=== PATIENT | female | born 1960 | race Caucasian/White ===

== ENCOUNTER 2020-08-07 21:50 | Inpatient (IN) | payer OTHER ==
--- NOTE | 2020-08-07 22:50 | EDM.PDOC ---
ED HPI GENERAL MEDICAL PROBLEM - General Chief Complaint: Gastrointestinal Problem Stated Complaint: ABD PAIN Time Seen by Provider: 08/07/20 22:31 Source of Information: Reports: Patient, Family, RN Notes Reviewed History Limitations: Reports: No Limitations - History of Present Illness INITIAL COMMENTS - FREE TEXT/NARRATIVE: 60-year-old female presents emergency department a complaint of difficulty swallowing, she is gastric bypass about 10 years has had difficulty with small bowel obstruction as well as stricture she states this feels very much like a stricture. She is pain-free as long she does not eat however if she eats something feels like it gets stuck and then she has some emesis. - Related Data Allergies Allergy/AdvReac Type Severity Reaction Status Date / Time iron Allergy Cannot Verified 08/07/20 22:16 Remember iron sucrose complex Allergy Cannot Verified 08/07/20 22:16 [From Venofer] Remember oxcarbazepine Allergy Cannot Verified 08/07/20 22:16 [From Trileptal] Remember Home Meds: Home Meds Calcium Carb/Vitamin D3/Vit K1 [Calcium + Vit D & K Chew] 2 tab PO DAILY 12/08/13 [History] Ergocalciferol (Vitamin D2) [Drisdol] 50,000 unit PO ASDIRECTED 12/08/13 [History] Multivitamin with Minerals [Antioxidant Vitamin] 1 tab PO DAILY 12/08/13 [History] Pantoprazole Sodium [Protonix] 20 mg PO DAILY 12/08/13 [History] Cholecalciferol (Vitamin D3) [Vitamin D3] 5,000 unit PO DAILY 03/09/15 [History] Cyanocobalamin (Vitamin B-12) [Cyanocobalamin Injection] 1,000 mcg IM DAILY 03/09/15 [History] Magnesium Hydroxide [Milk of Magnesia] 30 ml PO DAILY PRN #2 ml 03/15/15 [Rx] Aspirin 1 tab PO DAILY 08/07/20 [History] ClonazePAM [KlonoPIN] 1 tab PO BEDTIME 08/07/20 [History] DULoxetine [Cymbalta] 1 tab PO BEDTIME 08/07/20 [History] Iron,Carbonyl [Iron Chews] 1 tab PO DAILY 08/07/20 [History] Nortriptyline 1 tab PO DAILY 08/07/20 [History] Ondansetron [Zofran ODT] 1 tab PO TID PRN 08/07/20 [History] Rizatriptan [Maxalt FERMENTER WINE] 1 tab PO DAILY PRN 08/07/20 [History] Sennosides [Senna] 2 tab PO BEDTIME 08/07/20 [History] Past Medical History Gastrointestinal History: Reports: GERD Psychiatric History: Reports: Depression - Past Surgical History GI Surgical History: Reports: Bariatric Procedure, EGD Social & Family History - Tobacco Use Smoking Status *Q: Never Smoker ED ROS GENERAL - Review of Systems Review Of Systems: See Below Constitutional: Reports: No Symptoms Respiratory: Reports: No Symptoms Cardiovascular: Reports: No Symptoms GI/Abdominal: Reports: Abdominal Pain, Difficulty Swallowing, Nausea, Vomiting ED EXAM, GI/ABD - Physical Exam Exam: See Below Exam Limited By: No Limitations General Appearance: Alert, WD/WN, No Apparent Distress Respiratory/Chest: No Respiratory Distress, Lungs Clear, Normal Breath Sounds, No Accessory Muscle Use, Chest Non-Tender Cardiovascular: Regular Rate, Rhythm, No Murmur GI/Abdominal Exam: Soft, Non-Tender Course - Vital Signs Last Recorded V/S: Last Vital Signs Temp 98.5 F 08/07/20 22:37 Pulse 78 08/07/20 22:37 Resp 16 08/07/20 22:37 BP 145/78 H 08/07/20 22:37 Pulse Ox 99 08/07/20 22:37 - Orders/Labs/Meds Labs: Laboratory Tests 08/07/20 08/07/20 08/07/20 Range/Units 22:58 22:58 22:58 WBC 8.2 (4.5-11.0) K/uL RBC 4.27 (3.30-5.50) M/uL Hgb 12.0 (12.0-15.0) g/dL Hct 37.6 (36.0-48.0) % MCV 88 (80-98) fL MCH 28 (27-31) pg MCHC 32 (32-36) % Plt Count 419 H (150-400) K/uL Neut % (Auto) 62 (36-66) % Lymph % (Auto) 29 (24-44) % Norton % (Auto) 8 H (2-6) % Eos % (Auto) 2 (2-4) % Baso % (Auto) 0 (0-1) % Sodium 142 (140-148) mmol/L Potassium 3.6 (3.6-5.2) mmol/L Chloride 106 (100-108) mmol/L Carbon Dioxide 24 (21-32) mmol/L Anion Gap 12.3 (5.0-14.0) mmol/L BUN 16 D (7-18) mg/dL Creatinine 0.9 (0.6-1.0) mg/dL Est Cr Clr Drug Dosing 58.12 mL/min Estimated GFR (MDRD) > 60 (>60) Glucose 110 H (74-106) mg/dL Lactic Acid 0.7 (0.4-2.0) mmol/L Calcium 8.9 (8.5-10.1) mg/dL Total Bilirubin 0.3 (0.2-1.0) mg/dL AST 21 (15-37) U/L ALT 27 (12-78) U/L Alkaline Phosphatase 91 (46-116) U/L Total Protein 7.3 (6.4-8.2) g/dL Albumin 3.8 (3.4-5.0) g/dL Globulin 3.5 (2.3-3.5) g/dL Albumin/Globulin Ratio 1.1 L (1.2-2.2) Urine Color (YELLOW) Urine Appearance (CLEAR) Urine pH (5.0-8.0) Ur Specific Brutus (1.008-1.030) Urine Protein (NEGATIVE) mg/dL Urine Glucose (UA) (NEGATIVE) mg/dL Urine Ketones (NEGATIVE) mg/dL Urine Occult Blood (NEGATIVE) Urine Nitrite (NEGATIVE) Urine Bilirubin (NEGATIVE) Urine Urobilinogen (0.2-1.0) EU/dL Ur Leukocyte Esterase (NEGATIVE) Urine RBC (0-5) Urine WBC (0-5) Ur Epithelial Cells Amorphous Sediment Urine Bacteria Urine Mucus 08/07/20 Range/Units 23:26 WBC (4.5-11.0) K/uL RBC (3.30-5.50) M/uL Hgb (12.0-15.0) g/dL Hct (36.0-48.0) % MCV (80-98) fL MCH (27-31) pg MCHC (32-36) % Plt Count (150-400) K/uL Neut % (Auto) (36-66) % Lymph % (Auto) (24-44) % Norton % (Auto) (2-6) % Eos % (Auto) (2-4) % Baso % (Auto) (0-1) % Sodium (140-148) mmol/L Potassium (3.6-5.2) mmol/L Chloride (100-108) mmol/L Carbon Dioxide (21-32) mmol/L Anion Gap (5.0-14.0) mmol/L BUN (7-18) mg/dL Creatinine (0.6-1.0) mg/dL Est Cr Clr Drug Dosing mL/min Estimated GFR (MDRD) (>60) Glucose (74-106) mg/dL Lactic Acid (0.4-2.0) mmol/L Calcium (8.5-10.1) mg/dL Total Bilirubin (0.2-1.0) mg/dL AST (15-37) U/L ALT (12-78) U/L Alkaline Phosphatase (46-116) U/L Total Protein (6.4-8.2) g/dL Albumin (3.4-5.0) g/dL Globulin (2.3-3.5) g/dL Albumin/Globulin Ratio (1.2-2.2) Urine Color Yellow (YELLOW) Urine Appearance Clear (CLEAR) Urine pH 6.0 (5.0-8.0) Ur Specific Brutus 1.020 (1.008-1.030) Urine Protein Negative (NEGATIVE) mg/dL Urine Glucose (UA) Negative (NEGATIVE) mg/dL Urine Ketones Negative (NEGATIVE) mg/dL Urine Occult Blood Negative (NEGATIVE) Urine Nitrite Negative (NEGATIVE) Urine Bilirubin Negative (NEGATIVE) Urine Urobilinogen 0.2 (0.2-1.0) EU/dL Ur Leukocyte Esterase Negative (NEGATIVE) Urine RBC Not seen (0-5) Urine WBC 0-5 (0-5) Ur Epithelial Cells Not seen Amorphous Sediment Rare Urine Bacteria Not seen Urine Mucus Not seen Departure - Departure Time of Disposition: 23:37 Disposition: Admitted As Inpatient 67 Condition: Fair Clinical Impression: Dysphagia Qualifiers: Dysphagia type: unspecified Qualified Code(s): R13.10 - Dysphagia, unspecified - Discharge Information Referrals: PCP,None [Primary Care Provider] - Forms: ED Department Discharge Sepsis Event Note (ED) - Evaluation Sepsis Screening Result: No Definite Risk - Focused Exam Vital Signs: Vital Signs Temp Pulse Resp BP Pulse Ox 08/07/20 22:37 98.5 F 78 16 145/78 H 99 08/07/20 22:07 98.5 F 78 16 145/78 H 99 - Assessment/Plan Plan: Assessment Acuity = acute Site and laterality = dysphagia Etiology = unknown Manifestations = nausea and vomiting Location of injury = Home Lab values = CBC, CMP, urinalysis, lactic acid all within normal limits Plan Call discussed case Dr. Oliver at [id number] he kindly agreed to evaluate the patient in the hospital she will be admitted for observation plan for EGD and dilatation in the morning This note was dictated using [employer] voice recognition software please call with any questions on syntax or grammar.
[2020-08-07] MEDS ORDERED: Sodium Chloride 0.9% 10 ML Syringe FLUSH PRN (23:38)
[2020-08-07] MEDS ORDERED: Ondansetron 4 MG/2 ML SDV IVPUSH PRN (23:41)
[2020-08-07] MEDS ORDERED: fentaNYL 100 MCG/2 ML SDV IVPUSH PRN (23:41)
[2020-08-07] MEDS ORDERED: Lactated Ringers 1,000 ML IV SCH (23:45)
[2020-08-08] MEDS ORDERED: MVI, Adult with Vitamin K 10 ML, Chromium/Copper/Mang/Selen/Zn 1 ML, Thiamine 100 MG in... IV ONE ×4 (07:30)
[2020-08-08] MEDS ORDERED: fentaNYL 100 MCG/2 ML SDV ONE (07:39)
[2020-08-08] MEDS ORDERED: Midazolam 1 MG/ML 2 ML SDV ONE (07:39)
[2020-08-08] MEDS ORDERED: Propofol 200 MG/20 ML SDV ONE (07:39)
[2020-08-08] MEDS ORDERED: Hyoscyamine 0.125 MG Tab.SL SL PRN (08:58)
[2020-08-08] MEDS: Rizatriptan 10 MG Tab.DIS PO PRN ×2 (09:38→14:54)
[2020-08-08] MEDS: Dextrose 5%-Lactated Ringers 1,000 ML IV SCH ×2 (09:38→19:08)
[2020-08-08] MEDS ORDERED: Iopamidol 612 MG/ML 100 ML Bottle IV PRN (11:35)
[2020-08-08] MEDS ORDERED: Iopamidol 612 MG/ML 50 ML SDV PO ONE (11:35)
[2020-08-08] MEDS ORDERED: Sodium Chloride 0.9% 10 ML SDV FLUSH ONE (11:35)
--- NOTE | 2020-08-08 12:52 | CRLCT ---
HISTORY: Abdominal pain. TECHNIQUE: CT abdomen and pelvis with IV and oral contrast. COMPARISON: CT abdomen pelvis 03/17/2019. FINDINGS: Abdomen: Cholecystectomy. Mild intrahepatic bile duct dilation and prominent common duct compatible with postcholecystectomy change. No pancreatic mass pancreatic duct dilation. No spleen lesions. No adrenal nodules. Kidneys enhance symmetrically. 3.6 cm left renal cyst. No hydronephrosis. Georges-en-Y gastric bypass. Alimentary limb is mildly dilated. Contrast passes the jejunojejunostomy into the common channel. No extraluminal contrast. No discrete transition. Stool throughout the colon. Colon is nondilated. Ventral hernia repair. No recurrent ventral hernia. Small amount of free fluid in the pelvis. No fluid collection. No pneumoperitoneum. No lymphadenopathy. Moderate atherosclerosis. Abdominal aorta is normal caliber. Appendix is normal. Pelvis: Uterus absent. No lymphadenopathy. Musculoskeletal: Degenerative changes of the spine. Lower chest: Mild atelectasis in the lung bases. IMPRESSION: 1. Georges-en-Y gastric bypass. Mildly dilated alimentary limb without discrete obstruction. Contrast passes the jejunojejunostomy into the common channel. No extraluminal contrast to suggest leak. 2. Small amount of free fluid in the pelvis. No fluid collection. 3. Cholecystectomy. Please note that all CT scans at this facility use dose modulation, iterative reconstruction, and/or weight-based dosing when appropriate to reduce radiation dose to as low as reasonably achievable. Dictated by Antonino Klein MD @ Aug 08 2020 12:40PM Signed by Dr. Antonino Klein @ Aug 08 2020 12:50PM
[2020-08-09] MEDS: Rizatriptan 10 MG Tab.DIS PO PRN (02:38)
[2020-08-09] MEDS: Dextrose 5%-Lactated Ringers 1,000 ML IV SCH (02:41)
[2020-08-09 07:53] VITALS: BP 106/66; PULSE 63
--- NOTE | 2020-08-09 10:55 | CR ---
Abdomen 2V AP Flat Upright CLINICAL HISTORY: Follow-up SBO FINDINGS: There is moderate fecal retention. Small intestinal gas pattern is nonacute. Patient has had previous bariatric surgery as well as ventral hernia repair. IMPRESSION: Moderate fecal retention Nonacute intestinal gas pattern
--- NOTE | 2020-08-09 12:55 | OR ---
DATE OF PROCEDURE: 08/08/2020 SURGEON: Antonino Oliver MD PREOPERATIVE DIAGNOSIS: Possible stricture at the gastrojejunostomy. POSTOPERATIVE DIAGNOSIS: Minimal stricture at gastrojejunostomy. OPERATIVE PROCEDURE: Upper gastrointestinal endoscopy with dilation of gastrojejunostomy. ANESTHESIA: IV sedation. INDICATION FOR PROCEDURE: This is a 60-year-old status post Georges-en-Y gastric bypass with subsequent revision to a very small pouch, now presents with symptoms suggestive of stricturing with sense of food lodging in the retrosternal area. The plan is to proceed with upper GI endoscopy with dilation and/or biopsies as indicated. Potential risks including bleeding and perforation were discussed, and the patient wishes to proceed. DETAILS OF PROCEDURE: The patient was taken to the operating room, placed in a left lateral decubitus position. IV sedation was administered after which the upper GI endoscope was passed orally through the length of the esophagus and into the gastric pouch, from there through the gastrojejunostomy roughly 25 cm into the Georges limb. The patient was noted to have a very minimal stricture at the gastrojejunostomy with the posterior area having a rim of fibrous-type scar. Other than that, the exam was entirely normal. There was no significant mucosal inflammation. In fact, everything looked very supple and clearly not inflamed. At this point, a 54-[place]ian Savary dilator was centered across the anastomosis and inflated to 54-Belarusian size and held in position for 1 minute after which balloon catheter was deflated and withdrawn. There was a minimal dilation noted with just a small rim of blood and otherwise no complications were noted. The procedure was then concluded. The patient was taken to the recovery room in satisfactory condition. The plan at this point will be to give the patient a full-liquid diet as she maybe suffering from some esophageal spasm. It does not sound like she has really a bowel obstruction-type pattern. If she is able to swallow or able to tolerate a full- liquid diet, we will send her home with Rickey to take p.r.n. Otherwise, if that does not work, we will have to back and address whether or not there might be a bowel obstruction in play. Antonino Oliver MD /[id number]
--- NOTE | 2020-08-09 15:52 | DISCH ---
ADMISSION DIAGNOSES: Dysphagia, SP Georges-en-Y gastric bypass surgery, unspecified surgical malabsorption, and B12 deficiency. DISCHARGE DIAGNOSIS: EGD with dilation, 08/08/2020, Antonino Oliver MD. HISTORY: Angeles Mulligan is a 60-year-old female who presented to the emergency department of [facility] with difficulty swallowing. After preoperative evaluation and discussion of possible risks and possible complications, she wished to proceed with surgical procedure. HOSPITAL COURSE: Angeles had her EGD with dilation and due to the nature of her pain, she had a CT scan with a followup abdominal film with decrease in pain and adequate hydration. Activity was good. She was able to be discharged to home without any complications on 08/09/2020. PHYSICAL EXAMINATION: VITAL SIGNS: Angeles Mulligan is a 60-year-old female, height is 5 feet 4 inches, weight is 154 pounds. TPR is 97.6, 63, 12. Blood pressure 106/66. HEENT: Negative. NECK: Supple. HEART: Regular rate and rhythm. LUNGS: Clear. ABDOMEN: Soft, nontender. EXTREMITIES: Without peripheral edema. DISPOSITION: Discharged to home. CONDITION: Stable and improving. FOLLOWUP: Follow up on , 08/12/2020 for an already scheduled appointment at 10:15. HOME MEDICATIONS: Continue same medications with addition of Levsin 0.125 mg take 1 every 4 hours p.r.n. esophageal spasms, #30. She is to resume her home medications of clonazepam 1 mg at bedtime, Cymbalta 1 tablet oral at bedtime, aspirin 1 at bedtime, nortriptyline 1 at bedtime. There were no doses on her history to resume her bariatric vitamins and supplements. DIET: Step-2 gastric bypass diet for 2 weeks. ACTIVITY: As tolerated. Shower/bathing: May shower. DISCHARGE INSTRUCTIONS: Notify provider if any fever, increased pain, nausea, or vomiting.
== END 2020-08-09 10:59 | disposition home or self-care (01) | DRG 394 ==
LOC: JP.ED 21:50 → JP.ICU 23:38 → OBSVTOIN 08-08 13:00 → JP.MS 08-08 16:24
PROVIDERS: ADMIT Surgery; ATTEND Surgery
PROC: 0D768ZZ Dilation of Stomach, Via Natural or Artificial Opening Endoscopic (ICD-10-PCS; principal; 2020-08-08)
PROC: 0D7A8ZZ Dilation of Jejunum, Via Natural or Artificial Opening Endoscopic (ICD-10-PCS; 2020-08-08)
DX: K95.89 Other complications of other bariatric procedure (principal); K91.2 Postsurgical malabsorption, not elsewhere classified; Y83.8 Other surgical procedures as the cause of abnormal reaction of the patient, or of later complication, without mention of misadventure at the time of the procedure; K21.9 Gastro-esophageal reflux disease without esophagitis; F32.9 Major depressive disorder, single episode, unspecified; E53.8 Deficiency of other specified B group vitamins; Z98.84 Bariatric surgery status; Z88.8 Allergy status to other drugs, medicaments and biological substances; Z91.09 Other allergy status, other than to drugs and biological substances; Z79.899 Other long term (current) drug therapy; Z79.82 Long term (current) use of aspirin; Z20.828 Contact with and (suspected) exposure to other viral communicable diseases
CPT/HCPCS: 36415; 74019; 74019-26; 74177; 80053; 81001; 83605; 85025; 96374; 96375; 99285-25; A9270-GY; G0378; J2250; J2405; J2704; J3010; J3411; J7120; J7121; U0002

== ENCOUNTER 2022-11-09 06:39 | Inpatient (IN) | payer BC ==
[2022-11-09] MEDS ORDERED: Rizatriptan 10 MG Tab.DIS PO PRN (07:10)
[2022-11-09] MEDS ORDERED: HYDROmorphone/Normal Saline 6 MG/30 ML PCA Vial IV PRN (08:56)
[2022-11-09] MEDS ORDERED: Ondansetron 4 MG/2 ML SDV IVPUSH PRN ×2 (08:58→18:00)
[2022-11-09] MEDS ORDERED: NORTRIPTYLINE 50 MG PO SCH (09:00)
[2022-11-09] MEDS ORDERED: Naloxone 0.4 MG/ML SDV IV PRN (09:00)
[2022-11-09] MEDS ORDERED: Dextrose 5%-Lactated Ringers 1,000 ML IV SCH (09:15)
[2022-11-09] MEDS ORDERED: Meropenem 500 MG SDV ONE (09:32)
[2022-11-09] MEDS ORDERED: Bupivacaine 0.5% 30 ML SDV ONE (09:32)
[2022-11-09] MEDS ORDERED: Lidocaine 1% with EPINEPHrine 1:100,000 50 ML MDV ONE (09:32)
[2022-11-09] MEDS ORDERED: Dexamethasone 4 MG/ML SDV ONE (10:09)
[2022-11-09] MEDS ORDERED: Rocuronium 50 MG/5 ML Vial ONE ×2 (10:09→14:49)
[2022-11-09] MEDS ORDERED: Neostigmine Methylsulfate 1 MG/ML 5 ML Syringe ONE (10:09)
[2022-11-09] MEDS ORDERED: Succinylcholine 200 MG/10 ML MDV ONE (10:09)
[2022-11-09] MEDS ORDERED: Propofol 200 MG/20 ML SDV ONE (10:09)
[2022-11-09] MEDS ORDERED: Ondansetron 4 MG/2 ML SDV ONE (10:09)
[2022-11-09] MEDS ORDERED: Glycopyrrolate 0.2 MG/ML 5 ML MDV ONE (10:09)
[2022-11-09] MEDS ORDERED: fentaNYL 250 MCG/5 ML SDV ONE ×2 (10:11→14:09)
[2022-11-09] MEDS ORDERED: Ketamine 16 MG in Sodium Chloride 0.9% 19.84 ML IV SCH (12:00)
[2022-11-09] MEDS ORDERED: cefOXitin 2 GM in Sodium Chloride 0.9% 50 ML IV ONE (12:00)
[2022-11-09] MEDS ORDERED: Ketamine 500 MG/5 ML MDV IV SCH (12:00)
[2022-11-09] MEDS ORDERED: Lactated Ringers 1,000 ML ONE (14:01)
[2022-11-09] MEDS ORDERED: Linezolid 600 MG/300 ML Premix Bag IRR ONE (14:20)
[2022-11-09] MEDS ORDERED: Ondansetron 4 MG/2 ML SDV IVPUSH ONE (16:47)
[2022-11-09] MEDS ORDERED: Cyclobenzaprine 10 MG Tab PO PRN (17:23)
[2022-11-09] MEDS ORDERED: Melatonin 3 MG Tab PO PRN (17:28)
[2022-11-09] MEDS: Dextrose 5%-Lactated Ringers 1,000 ML IV SCH ×2 (17:44→23:34)
[2022-11-09] MEDS: Acetaminophen 500 MG Tab PO SCH (17:49)
[2022-11-09] MEDS ORDERED: Benzocaine/Cetylpyridinium/Menthol Lozenge MUCMEM PRN (17:52)
[2022-11-09] MEDS ORDERED: hydrOXYzine HCL 100 MG/2 ML SDV IM PRN (18:00)
[2022-11-09] MEDS ORDERED: Acetaminophen 500 MG Tab PO PRN (18:00)
[2022-11-09] MEDS ORDERED: Labetalol 20 MG/4 ML Syringe IVPUSH PRN (18:00)
[2022-11-09] MEDS ORDERED: MVI, Adult with Vitamin K 10 ML, Thiamine 200 MG, Zinc/Copper/Manganese/Selenium 1 ML i... IV SCH ×4 (18:00)
[2022-11-09] MEDS ORDERED: Pantoprazole 40 MG Vial IVPUSH SCH (18:00)
[2022-11-09] MEDS ORDERED: diphenhydrAMINE 50 MG/ML SDV IVPUSH PRN (18:00)
[2022-11-09] MEDS: cefOXitin 2 GM in Sodium Chloride 0.9% 50 ML IV SCH ×2 (19:38→23:33)
[2022-11-09] MEDS: Heparin Sodium 5,000 Units/ML Vial SUBCUT SCH (19:39)
[2022-11-09] MEDS ORDERED: Non-Formulary Medication 1 Each (Clonazepam [Klonopin] 0.5 MG Tab.Dis) PO SCH (21:00)
[2022-11-09] MEDS ORDERED: Non-Formulary Medication 1 Each (Duloxetine [Cymbalta] 60 MG Cap) PO SCH (21:00)
[2022-11-10] MEDS: Acetaminophen 500 MG Tab PO SCH ×3 (01:24→17:28)
[2022-11-10] MEDS ORDERED: Iopamidol 612 MG/ML 50 ML SDV PO STA (01:42)
[2022-11-10] MEDS: cefOXitin 2 GM in Sodium Chloride 0.9% 50 ML IV SCH ×4 (05:24→23:21)
[2022-11-10] MEDS: Dextrose 5%-Lactated Ringers 1,000 ML IV SCH (05:27)
[2022-11-10 06:04] LABS: ESTIMATED GFR 98 mL/min (>60)
[2022-11-10] MEDS: Heparin Sodium 5,000 Units/ML Vial SUBCUT SCH ×2 (08:57→20:15)
[2022-11-10] MEDS: Aspirin 81 MG Tab.EC PO SCH (08:58)
[2022-11-10] MEDS: Celecoxib 200 MG Cap PO SCH ×2 (08:58→20:16)
[2022-11-10] MEDS: Gabapentin 300 MG Cap PO SCH ×3 (08:58→20:16)
[2022-11-10] MEDS: busPIRone 5 MG Tab PO SCH ×2 (08:58→20:15)
[2022-11-10] MEDS: Sertraline 50 MG Tab PO SCH (08:59)
[2022-11-10] MEDS: SCOPOLAMINE PATCH CHECK TOP SCH (08:59)
[2022-11-10] MEDS ORDERED: Gabapentin 300 MG Cap PO SCH (09:00)
[2022-11-10] MEDS: Magnesium Sulfate/Water 2 GM in Premix Bag 1 BAG IV SCH ×3 (09:18→20:16)
[2022-11-10] MEDS ORDERED: methylPREDNISolone Sodium Succinate 125 MG/2 ML SDV IVPUSH ONE (11:00)
[2022-11-10] MEDS ORDERED: Sodium Ferric Gluconate Cmplex 250 MG in Sodium Chloride 0.9% 100 ML IV ONE (11:00)
[2022-11-10] MEDS ORDERED: Famotidine 20 MG/2 ML SDV IV ONE (11:00)
[2022-11-10] MEDS: Pantoprazole 40 MG Tab.CR PO SCH (15:26)
[2022-11-10] MEDS: Metoclopramide 10 MG/2 ML SDV IVPUSH PRN (15:29)
[2022-11-10] MEDS ORDERED: MVI, Adult with Vitamin K 10 ML, Thiamine 200 MG, Zinc/Copper/Manganese/Selenium 1 ML i... IV SCH ×4 (18:00)
[2022-11-11] MEDS: Acetaminophen 500 MG Tab PO SCH ×3 (03:11→17:34)
[2022-11-11] MEDS: Magnesium Sulfate/Water 2 GM in Premix Bag 1 BAG IV SCH ×4 (03:11→20:03)
[2022-11-11] MEDS: Dextrose 5%-Lactated Ringers 1,000 ML IV SCH ×2 (03:13→17:55)
[2022-11-11] MEDS: cefOXitin 2 GM in Sodium Chloride 0.9% 50 ML IV SCH ×2 (05:20→11:48)
[2022-11-11] MEDS ORDERED: Polyethylene Glycol 3350 Powder 17 GM Packet PO PRN (07:20)
[2022-11-11] MEDS: Celecoxib 200 MG Cap PO SCH ×2 (08:55→20:03)
[2022-11-11] MEDS: Aspirin 81 MG Tab.EC PO SCH (08:55)
[2022-11-11] MEDS: busPIRone 5 MG Tab PO SCH ×2 (08:55→20:03)
[2022-11-11] MEDS: Sertraline 50 MG Tab PO SCH (08:55)
[2022-11-11] MEDS: SCOPOLAMINE PATCH CHECK TOP SCH (08:56)
[2022-11-11] MEDS: Gabapentin 300 MG Cap PO SCH ×3 (08:56→20:02)
[2022-11-11] MEDS: Heparin Sodium 5,000 Units/ML Vial SUBCUT SCH ×2 (09:00→20:02)
[2022-11-11] MEDS ORDERED: Cyanocobalamin (Vitamin B12) 1,000 MCG/ML SDV IM ONE (09:00)
[2022-11-11] MEDS ORDERED: Polyethylene Glycol 3350 Powder 17 GM Packet PO ONE (09:00)
[2022-11-11] MEDS: Calcium Carbonate 500 MG Tab.Chew PO PRN ×4 (10:01→20:03)
[2022-11-11] MEDS ORDERED: methylPREDNISolone Sodium Succinate 125 MG/2 ML SDV IVPUSH ONE (10:45)
[2022-11-11] MEDS ORDERED: Sodium Ferric Gluconate Cmplex 250 MG in Sodium Chloride 0.9% 100 ML IV ONE (11:00)
[2022-11-11] MEDS: HYDROmorphone 2 MG Tab PO PRN ×2 (11:28→20:03)
[2022-11-11] MEDS: Metoclopramide 10 MG/2 ML SDV IVPUSH PRN ×2 (13:28→20:03)
[2022-11-11] MEDS ORDERED: Magnesium Hydroxide 400 MG/5 ML Susp 30 ML Cup PO PRN (15:18)
[2022-11-11] MEDS ORDERED: Bisacodyl 10 MG Supp RECTAL PRN (15:19)
[2022-11-11] MEDS: Pantoprazole 40 MG Tab.CR PO SCH (15:43)
[2022-11-12] MEDS ORDERED: Metoclopramide 10 MG Tab PO SCH
[2022-11-12] MEDS ORDERED: HYDROmorphone 2 MG Tab PO SCH
[2022-11-12] MEDS: Magnesium Sulfate/Water 2 GM in Premix Bag 1 BAG IV SCH (02:38)
[2022-11-12] MEDS: Acetaminophen 500 MG Tab PO SCH ×2 (02:39→09:21)
[2022-11-12] MEDS: Metoclopramide 10 MG/2 ML SDV IVPUSH PRN (04:26)
[2022-11-12] MEDS: HYDROmorphone 2 MG Tab PO PRN ×2 (04:26→09:14)
[2022-11-12] MEDS: Calcium Carbonate 500 MG Tab.Chew PO PRN ×2 (04:27→09:14)
[2022-11-12 08:08] VITALS: BP 130/74; PULSE 71
[2022-11-12] MEDS ORDERED: Magnesium Hydroxide 400 MG/5 ML Susp 30 ML Cup PO ONE (09:00)
[2022-11-12] MEDS: busPIRone 5 MG Tab PO SCH (09:04)
[2022-11-12] MEDS: Celecoxib 200 MG Cap PO SCH (09:05)
[2022-11-12] MEDS: Sertraline 50 MG Tab PO SCH (09:05)
[2022-11-12] MEDS: Gabapentin 300 MG Cap PO SCH (09:05)
[2022-11-12] MEDS: Heparin Sodium 5,000 Units/ML Vial SUBCUT SCH (09:05)
[2022-11-12] MEDS: Aspirin 81 MG Tab.EC PO SCH (09:05)
== END 2022-11-12 09:30 | disposition still patient (30) | DRG 221 ==
LOC: JP.2SS 06:39
PROVIDERS: ADMIT Surgery; ATTEND Surgery
PROC: 0DB80ZZ Excision of Small Intestine, Open Approach (ICD-10-PCS; principal; 2022-11-09)
PROC: 0WQF0ZZ Repair Abdominal Wall, Open Approach (ICD-10-PCS; 2022-11-09)
PROC: 3E0M05Z Introduction of Adhesion Barrier into Peritoneal Cavity, Open Approach (ICD-10-PCS; 2022-11-09)
PROC: 0DQ80ZZ Repair Small Intestine, Open Approach (ICD-10-PCS; 2022-11-09)
DX: K95.89 Other complications of other bariatric procedure (principal); K43.0 Incisional hernia with obstruction, without gangrene; K56.51 Intestinal adhesions [bands], with partial obstruction; I35.1 Nonrheumatic aortic (valve) insufficiency; F32.A Depression, unspecified; E03.9 Hypothyroidism, unspecified; E61.1 Iron deficiency; K21.9 Gastro-esophageal reflux disease without esophagitis; G43.909 Migraine, unspecified, not intractable, without status migrainosus; F41.9 Anxiety disorder, unspecified; Z88.8 Allergy status to other drugs, medicaments and biological substances; Z79.82 Long term (current) use of aspirin; Z98.84 Bariatric surgery status; Z79.899 Other long term (current) drug therapy
CPT/HCPCS: 36415; 74240; 80053; 82306; 82525; 82728; 83735; 83880; 84100; 84590; 84630; 85025; 88307; A9270-GY; C9113; J0171; J0330; J0694; J1100; J1170; J1644; J2020; J2185; J2405; J2704; J2710; J2765; J2795; J2916; J2930; J3010; J3411; J3420; J3475; J3490; J7120; J7121; Q9967

== ENCOUNTER 2023-01-16 07:00 | Day surgery (SDC) | payer BC ==
[~2023-01-16 07:00] MED LIST: MVI, Adult with Vitamin K 10 ML, Thiamine 200 MG, Chromium/Copper/Mang/Selen/Zn 1 ML in... IV ONE
[2023-01-16] MEDS ORDERED: fentaNYL 50 MCG/ML SDV ONE (07:14)
[2023-01-16] MEDS ORDERED: Propofol 200 MG/20 ML SDV ONE ×2 (07:14→08:11)
[2023-01-16] MEDS ORDERED: Midazolam 1 MG/ML 2 ML SDV ONE ×2 (07:14→08:11)
[2023-01-16] MEDS ORDERED: Lactated Ringers 1,000 ML IV ONE (07:45)
[2023-01-16] MEDS ORDERED: Cyanocobalamin (Vitamin B12) 1,000 MCG/ML SDV IM ONE (08:00)
[2023-01-16] MEDS ORDERED: fentaNYL 100 MCG/2 ML SDV ONE (08:11)
[2023-01-16] MEDS ORDERED: Glycopyrrolate 0.2 MG/ML 2 ML SDV IVPUSH ONE (08:15)
[2023-01-16] MEDS ORDERED: MVI, Adult with Vitamin K 10 ML, Thiamine 200 MG, Chromium/Copper/Mang/Selen/Zn 1 ML in... IV ONE ×4 (09:00)
[2023-01-16 10:48] VITALS: BP 117/55; PULSE 66
== END 2023-01-16 10:49 | disposition home or self-care (01) ==
LOC: JP.SDS 07:00
PROVIDERS: ATTEND Surgery
DX: K20.90 Esophagitis, unspecified without bleeding (principal); K22.89 Other specified disease of esophagus; K21.9 Gastro-esophageal reflux disease without esophagitis; Z90.49 Acquired absence of other specified parts of digestive tract
CPT/HCPCS: 88305; J2250; J2704; J3010; J3411; J3420; J3490; J7120

== ENCOUNTER 2023-01-23 08:47 | Inpatient (IN) | payer BC ==
[2023-01-23] MEDS ORDERED: Gabapentin 300 MG Cap PO ONE (09:00)
[2023-01-23] MEDS ORDERED: Scopolamine 1.5 MG Transdermal Patch TRDERM ONE (09:00)
[2023-01-23] MEDS ORDERED: Dextrose 5%-Lactated Ringers 1,000 ML IV SCH (09:30)
[2023-01-23] MEDS ORDERED: Meropenem 500 MG SDV ONE ×2 (09:56→12:41)
[2023-01-23] MEDS ORDERED: Lidocaine 1% with EPINEPHrine 1:100,000 50 ML MDV ONE (09:56)
[2023-01-23] MEDS ORDERED: Bupivacaine 0.5% 50 ML MDV ONE (09:56)
[2023-01-23] MEDS ORDERED: cefOXitin 2 GM in Sodium Chloride 0.9% 50 ML IV ONE (10:30)
[2023-01-23] MEDS ORDERED: Ropivacaine 38 ML, dexAMETHasone 8 MG, EPINEPHrine 0.4 MG, Sodium Chloride 0.9% 39.6 ML NERVRT SCH ×4 (10:45)
[2023-01-23] MEDS ORDERED: Ketamine 500 MG/5 ML MDV IV SCH (10:45)
[2023-01-23] MEDS ORDERED: Ketamine 16 MG in Sodium Chloride 0.9% 19.84 ML IV SCH (10:45)
[2023-01-23] MEDS ORDERED: fentaNYL 250 MCG/5 ML SDV ONE ×2 (11:09→12:21)
[2023-01-23] MEDS ORDERED: Rocuronium 50 MG/5 ML Vial ONE ×2 (11:10→12:21)
[2023-01-23] MEDS ORDERED: Ondansetron 4 MG/2 ML SDV ONE (11:10)
[2023-01-23] MEDS ORDERED: Propofol 200 MG/20 ML SDV ONE (11:10)
[2023-01-23] MEDS ORDERED: Dexamethasone 4 MG/ML SDV ONE (11:10)
[2023-01-23] MEDS ORDERED: Glycopyrrolate 0.2 MG/ML 5 ML MDV ONE (11:10)
[2023-01-23] MEDS ORDERED: Neostigmine Methylsulfate 1 MG/ML 5 ML Syringe ONE (11:10)
[2023-01-23] MEDS ORDERED: diphenhydrAMINE 50 MG/ML SDV IVPUSH PRN ×2 (11:24→15:40)
[2023-01-23] MEDS ORDERED: Naloxone 0.4 MG/ML SDV IVPUSH PRN (11:24)
[2023-01-23] MEDS ORDERED: Ondansetron 4 MG/2 ML SDV IVPUSH PRN (11:24)
[2023-01-23] MEDS ORDERED: diphenhydrAMINE 25 MG Cap PO PRN (11:24)
[2023-01-23] MEDS ORDERED: Lactated Ringers 1,000 ML ONE (11:51)
[2023-01-23] MEDS: HYDROmorphone/Normal Saline 6 MG/30 ML PCA Vial IV PRN (12:19)
[2023-01-23] MEDS ORDERED: Linezolid 600 MG/300 ML Premix Bag IRR ONE (12:51)
[2023-01-23] MEDS ORDERED: Cyclobenzaprine 10 MG Tab PO PRN (15:26)
[2023-01-23] MEDS ORDERED: hydrOXYzine HCl 50 MG/ML SDV IM PRN (15:40)
[2023-01-23] MEDS ORDERED: Acetaminophen 500 MG Tab PO PRN (15:40)
[2023-01-23] MEDS ORDERED: Labetalol 20 MG/4 ML Syringe IVPUSH PRN (15:40)
[2023-01-23] MEDS: MVI, Adult with Vitamin K 10 ML, Thiamine 200 MG, Zinc/Copper/Manganese/Selenium 1 ML i... IV SCH ×4 (17:16)
[2023-01-23] MEDS: Pantoprazole 40 MG Vial IVPUSH SCH (17:16)
[2023-01-23] MEDS: cefOXitin 2 GM in Sodium Chloride 0.9% 50 ML IV SCH ×2 (17:22→17:30)
[2023-01-23] MEDS: Heparin Sodium 5,000 Units/ML Vial SUBCUT SCH (20:17)
[2023-01-23] MEDS: Sennosides 8.6 MG Tab PO SCH (20:18)
[2023-01-23] MEDS ORDERED: Gabapentin 300 MG Cap PO SCH (21:00)
[2023-01-23] MEDS: Acetaminophen 500 MG Tab PO SCH (21:57)
[2023-01-24] MEDS: cefOXitin 2 GM in Sodium Chloride 0.9% 50 ML IV SCH ×4 (00:37→17:38)
[2023-01-24] MEDS: Ondansetron 4 MG/2 ML SDV IVPUSH PRN ×2 (01:58→12:00)
[2023-01-24] MEDS ORDERED: Iopamidol 612 MG/ML 30 ML SDV PO STA (03:05)
[2023-01-24] MEDS: Metoclopramide 10 MG/2 ML SDV IVPUSH PRN ×2 (04:51→12:56)
[2023-01-24] MEDS: Dextrose 5%-Lactated Ringers 1,000 ML IV SCH ×4 (04:52→14:16)
[2023-01-24] MEDS: Acetaminophen 500 MG Tab PO SCH ×3 (05:10→21:22)
[2023-01-24 05:22] LABS: ESTIMATED GFR 73 mL/min (>60)
[2023-01-24] MEDS: Aluminum Hydroxide/Magnesium Hydroxide/Simethicone Susp 30 ML Cup PO PRN ×2 (07:55→21:25)
[2023-01-24] MEDS: Heparin Sodium 5,000 Units/ML Vial SUBCUT SCH ×2 (07:56→20:12)
[2023-01-24] MEDS: Sertraline 50 MG Tab PO SCH (08:11)
[2023-01-24] MEDS: Sennosides 8.6 MG Tab PO SCH ×2 (08:12→21:22)
[2023-01-24] MEDS: SCOPOLAMINE PATCH CHECK TOP SCH (08:12)
[2023-01-24] MEDS: Celecoxib 200 MG Cap PO SCH ×2 (08:12→21:21)
[2023-01-24] MEDS: Aspirin 81 MG Tab.EC PO SCH (08:12)
[2023-01-24] MEDS: busPIRone 5 MG Tab PO SCH ×2 (10:15→21:21)
[2023-01-24] MEDS: Gabapentin 300 MG Cap PO SCH ×2 (14:18→21:21)
[2023-01-24] MEDS: MVI, Adult with Vitamin K 10 ML, Thiamine 200 MG, Zinc/Copper/Manganese/Selenium 1 ML i... IV SCH ×4 (16:32)
[2023-01-24] MEDS: Pantoprazole 40 MG Vial IVPUSH SCH (17:38)
[2023-01-25] MEDS: cefOXitin 2 GM in Sodium Chloride 0.9% 50 ML IV SCH ×3 (00:57→12:13)
[2023-01-25] MEDS: Tamsulosin 0.4 MG Cap.ER PO SCH ×2 (03:58→20:11)
[2023-01-25] MEDS: Acetaminophen 500 MG Tab PO SCH ×3 (05:50→21:42)
[2023-01-25] MEDS ORDERED: Meropenem 500 MG SDV ONE (06:44)
[2023-01-25] MEDS ORDERED: Lidocaine 1% with EPINEPHrine 1:100,000 50 ML MDV ONE (06:44)
[2023-01-25] MEDS ORDERED: Bupivacaine 0.5% 50 ML MDV ONE (06:44)
[2023-01-25] MEDS ORDERED: Propofol 200 MG/20 ML SDV ONE ×2 (07:11→08:23)
[2023-01-25] MEDS ORDERED: Ropivacaine 38 ML, dexAMETHasone 8 MG, EPINEPHrine 0.4 MG, Sodium Chloride 0.9% 39.6 ML NERVRT SCH ×4 (07:15)
[2023-01-25] MEDS ORDERED: fentaNYL 100 MCG/2 ML SDV ONE (08:01)
[2023-01-25] MEDS ORDERED: Meropenem 500 MG SDV IRR ONE (08:22)
[2023-01-25] MEDS ORDERED: Lidocaine 1% with EPINEPHrine 1:100,000 50 ML MDV INJECT ONE (08:23)
[2023-01-25] MEDS ORDERED: Bupivacaine 0.5% 50 ML MDV INJECT ONE (08:23)
[2023-01-25] MEDS ORDERED: Cyanocobalamin (Vitamin B12) 1,000 MCG/ML SDV IM ONE (09:00)
[2023-01-25] MEDS ORDERED: Rizatriptan 10 MG Tab.DIS PO PRN (09:20)
[2023-01-25] MEDS: Ondansetron 4 MG/2 ML SDV IVPUSH PRN (09:56)
[2023-01-25] MEDS: Gabapentin 300 MG Cap PO SCH ×3 (10:54→20:12)
[2023-01-25] MEDS: Celecoxib 200 MG Cap PO SCH ×2 (10:54→20:10)
[2023-01-25] MEDS: Sennosides 8.6 MG Tab PO SCH ×2 (10:54→20:11)
[2023-01-25] MEDS: busPIRone 5 MG Tab PO SCH ×2 (10:54→20:10)
[2023-01-25] MEDS: Heparin Sodium 5,000 Units/ML Vial SUBCUT SCH ×2 (10:55→20:10)
[2023-01-25] MEDS: SCOPOLAMINE PATCH CHECK TOP SCH (10:55)
[2023-01-25] MEDS: Aspirin 81 MG Tab.EC PO SCH (10:55)
[2023-01-25] MEDS: Dextrose 5%-Lactated Ringers 1,000 ML IV SCH ×2 (10:56→21:42)
[2023-01-25] MEDS: Sertraline 50 MG Tab PO SCH (11:03)
[2023-01-25] MEDS: Aluminum Hydroxide/Magnesium Hydroxide/Simethicone Susp 30 ML Cup PO PRN ×2 (12:17→18:01)
[2023-01-25] MEDS: Pantoprazole 40 MG Tab.CR PO SCH (18:01)
[2023-01-26] MEDS: HYDROmorphone/Normal Saline 6 MG/30 ML PCA Vial IV PRN (00:09)
[2023-01-26] MEDS: Acetaminophen 500 MG Tab PO SCH ×2 (06:20→13:04)
[2023-01-26] MEDS ORDERED: Ondansetron 4 MG Tab.DIS PO PRN ×2 (06:28→08:12)
[2023-01-26] MEDS: HYDROmorphone 2 MG Tab PO PRN ×3 (06:50→18:00)
[2023-01-26] MEDS ORDERED: HYDROmorphone 2 MG Tab PO PRN (08:11)
[2023-01-26] MEDS ORDERED: Potassium Chloride 20 MEQ Tab.ER PO PRN (08:13)
[2023-01-26] MEDS ORDERED: Furosemide 20 MG Tab PO PRN (08:13)
[2023-01-26] MEDS: Heparin Sodium 5,000 Units/ML Vial SUBCUT SCH (08:26)
[2023-01-26] MEDS: Celecoxib 200 MG Cap PO SCH (08:26)
[2023-01-26] MEDS: Sennosides 8.6 MG Tab PO SCH (08:26)
[2023-01-26] MEDS: Gabapentin 300 MG Cap PO SCH ×2 (08:27→13:04)
[2023-01-26] MEDS: Aspirin 81 MG Tab.EC PO SCH (08:27)
[2023-01-26] MEDS: Sertraline 50 MG Tab PO SCH (08:27)
[2023-01-26] MEDS: busPIRone 5 MG Tab PO SCH (08:27)
[2023-01-26] MEDS ORDERED: Ciprofloxacin 500 MG Tab PO SCH (09:00)
[2023-01-26] MEDS ORDERED: Lactobacillus Rhamnosus GG (Probiotic) Cap PO SCH (09:00)
[2023-01-26 09:52] VITALS: BP 107/53; PULSE 72
[2023-01-26] MEDS: Pantoprazole 40 MG Tab.CR PO SCH (15:48)
== END 2023-01-26 18:00 | disposition home or self-care (01) | DRG 221 ==
LOC: JP.SDS 08:47 → JP.MS 15:13
PROVIDERS: ADMIT Surgery; ATTEND Surgery
PROC: 0DTN0ZZ Resection of Sigmoid Colon, Open Approach (ICD-10-PCS; principal; 2023-01-23)
PROC: 0DTP0ZZ Resection of Rectum, Open Approach (ICD-10-PCS; 2023-01-23)
PROC: 0DQL0ZZ Repair Transverse Colon, Open Approach (ICD-10-PCS; 2023-01-23)
PROC: 3E0M05Z Introduction of Adhesion Barrier into Peritoneal Cavity, Open Approach (ICD-10-PCS; 2023-01-23)
DX: K56.2 Volvulus (principal); K66.0 Peritoneal adhesions (postprocedural) (postinfection); K91.2 Postsurgical malabsorption, not elsewhere classified; E53.8 Deficiency of other specified B group vitamins; E53.9 Vitamin B deficiency, unspecified; E60 Dietary zinc deficiency; E50.9 Vitamin A deficiency, unspecified; Z98.84 Bariatric surgery status
CPT/HCPCS: 36415; 51702; 74240; 74240-26; 80053; 82728; 82947; 83735; 84100; 85025; A9270-GY; C9113; J0131; J0171; J0694; J1100; J1170; J1644; J2020; J2185; J2405; J2704; J2710; J2765; J2795; J3010; J3411; J3420; J3490; J7120; J7121; Q0162; Q9967

== ENCOUNTER 2023-02-10 19:23 | Observation (INO) | payer BC ==
[2023-02-10] MEDS ORDERED: Sodium Chloride 0.9% 10 ML Syringe FLUSH PRN (20:08)
[2023-02-10 21:17] LABS: CORONAVIRUS COVID-19 NAA NEGATIVE (NEGATIVE)
[2023-02-10] MEDS ORDERED: Linezolid 600 MG in Premix Bag 1 BAG IV SCH (21:29)
[2023-02-10] MEDS ORDERED: Ondansetron 4 MG/2 ML SDV IV PRN (21:29)
[2023-02-10] MEDS ORDERED: Ondansetron 4 MG Tab.DIS PO PRN (21:29)
[2023-02-10] MEDS ORDERED: Magnesium Hydroxide 400 MG/5 ML Susp 30 ML Cup PO PRN (21:29)
[2023-02-10] MEDS ORDERED: Melatonin 3 MG Tab PO PRN (21:29)
[2023-02-10] MEDS: Acetaminophen 325 MG Tab PO PRN (22:06)
[2023-02-10] MEDS: Meropenem 1 GM in Sodium Chloride 0.9% 100 ML IV SCH (22:07)
[2023-02-10] MEDS ORDERED: Sennosides 8.6 MG Tab PO SCH (22:11)
[2023-02-10] MEDS ORDERED: Rizatriptan 10 MG Tab.DIS PO PRN (22:11)
[2023-02-10] MEDS ORDERED: Gabapentin 300 MG Cap ONE (22:46)
[2023-02-10] MEDS: Gabapentin 300 MG Cap PO SCH (22:50)
[2023-02-10] MEDS: Sodium Chloride 0.9% 1,000 ML IV SCH (22:50)
[2023-02-11] MEDS: Meropenem 1 GM in Sodium Chloride 0.9% 100 ML IV SCH (05:37)
[2023-02-11] MEDS ORDERED: Pantoprazole 40 MG Tab.CR PO SCH (07:30)
[2023-02-11] MEDS: Gabapentin 300 MG Cap PO SCH (08:42)
[2023-02-11] MEDS: Acetaminophen 325 MG Tab PO PRN (08:48)
[2023-02-11] MEDS ORDERED: Multivitamins with Iron/Calcium/Folic Acid/Minerals Tab PO SCH (09:00)
[2023-02-11] MEDS: Sodium Chloride 0.9% 1,000 ML IV SCH (09:14)
[2023-02-11] MEDS ORDERED: Linezolid 600 MG in Premix Bag 1 BAG IV SCH (10:30)
[2023-02-11 11:47] VITALS: BP 115/65; PULSE 63
== END 2023-02-11 12:00 | disposition home or self-care (01) ==
LOC: JP.ED 19:23 → JP.2SS 20:05
PROVIDERS: ADMIT Surgery; ATTEND Surgery
DX: T81.31XA Disruption of external operation (surgical) wound, not elsewhere classified, initial encounter (principal); K21.9 Gastro-esophageal reflux disease without esophagitis; F41.9 Anxiety disorder, unspecified; F32.A Depression, unspecified; E61.1 Iron deficiency; E53.8 Deficiency of other specified B group vitamins; G43.909 Migraine, unspecified, not intractable, without status migrainosus; Z86.16 Personal history of COVID-19; Z90.49 Acquired absence of other specified parts of digestive tract; Z98.84 Bariatric surgery status; Z88.8 Allergy status to other drugs, medicaments and biological substances; Z79.899 Other long term (current) drug therapy; Z79.82 Long term (current) use of aspirin; Z98.890 Other specified postprocedural states; Z20.822 Contact with and (suspected) exposure to COVID-19
CPT/HCPCS: 0241U; 36415; 80048; 85025; 87070; 87077; 87205; 96365; 96366; 96367; 96376; 99284; A9270; G0378; J2020; J2185; J3490; J7030; 87186; 99285

== ENCOUNTER 2023-05-04 08:56 | Day surgery (SDC) | payer BC ==
[2023-05-04] MEDS ORDERED: Dextrose 5%-Lactated Ringers 1,000 ML IV SCH (10:00)
[2023-05-04] MEDS ORDERED: Propofol 200 MG/20 ML SDV ONE (10:53)
[2023-05-04] MEDS ORDERED: fentaNYL 50 MCG/ML SDV ONE (10:53)
[2023-05-04] MEDS ORDERED: Midazolam 1 MG/ML 2 ML SDV ONE (10:53)
[2023-05-04 13:04] VITALS: BP 126/67; PULSE 69
== END 2023-05-04 13:14 | disposition home or self-care (01) ==
LOC: JP.SDS 08:56
PROVIDERS: ATTEND Surgery
DX: Z12.11 Encounter for screening for malignant neoplasm of colon (principal); K64.9 Unspecified hemorrhoids; K21.9 Gastro-esophageal reflux disease without esophagitis; F32.A Depression, unspecified; K90.9 Intestinal malabsorption, unspecified; Z90.49 Acquired absence of other specified parts of digestive tract; Z98.0 Intestinal bypass and anastomosis status; Z80.0 Family history of malignant neoplasm of digestive organs; Z88.8 Allergy status to other drugs, medicaments and biological substances
CPT/HCPCS: 45378; J2250; J2704; J3010; J7121